=== PATIENT | female | born 1960 | race Caucasian/White ===

== ENCOUNTER 2017-02-27 18:27 | Emergency (ER) | payer OTHER ==
[~2017-02-27] VITALS: Ht 162.6 cm; Wt 81.6 kg
[2017-02-27 19:49] LABS: microscopic required? YES; urine erythrocyte NEGATIVE (NEGATIVE)
[2017-02-27 20:06] LABS: BASOPHIL % 0.3 % (0-2); PLATELET COUNT 195 x10^3mcL (130-400)
[2017-02-27 20:07] LABS: RED CELL DISTRIBUTION WIDTH 14.6 % (11.5-14.5)
[2017-02-27 20:16] LABS: CALCIUM 8.6 mg/dL (8.5-10.1); CARBON DIOXIDE 21.5 mmol/L (21-32); CHLORIDE SERUM 105 mmol/L (98-107); CREATININE SERUM 0.8 mg/dL (0.6-1.0); GFR1 > 60 mL/min; GLUCOSE SERUM 92 mg/dL (74-106); POTASSIUM SERUM 3.6 mmol/L (3.5-5.1); SODIUM SERUM 140 mmol/L (136-145)
[2017-02-27 20:20] LABS: ALKALINE PHOSPHATASE 123 U/L (46-116); ALT/SGPT 37 U/L (14-59); AMYLASE 48 U/L (25-115); AST/SGOT 31 U/L (15-37); LIPASE 134 IU/L (73-393); TOTAL PROTEIN, SERUM 6.9 g/dL (6.4-8.2)
[2017-02-27 20:25] LABS: ALBUMIN 3.3 g/dL (3.4-5.0)
[2017-02-27 21:20] VITALS: BP 134/92
== END 2017-02-27 21:20 | disposition home or self-care (01) ==
LOC: ED 18:27
PROVIDERS: Emergency Medicine
DX: R53.1 Weakness (principal); N39.0 Urinary tract infection, site not specified; E78.00 Pure hypercholesterolemia, unspecified
CPT/HCPCS: 36415

== ENCOUNTER 2017-11-01 11:06 | Emergency (ER) | payer OTHER ==
[~2017-11-01] VITALS: Ht 154.9 cm; Wt 71.7 kg
[2017-11-01 11:17] VITALS: Ht 154.9 cm; Wt 71.7 kg
[2017-11-01 13:51] VITALS: BP 142/46
== END 2017-11-01 13:51 | disposition home or self-care (01) ==
LOC: ED 11:06
DX: B34.9 Viral infection, unspecified (principal); M54.5 Low back pain

== ENCOUNTER 2018-02-10 22:33 | Emergency (ER) | payer OTHER ==
[~2018-02-10] VITALS: Ht 154.9 cm; Wt 71.2 kg
[2018-02-10 22:35] VITALS: BP 143/80; Ht 154.9 cm; Wt 71.2 kg
== END 2018-02-11 00:57 | disposition home or self-care (01) ==
LOC: ED 22:33
DX: Z48.02 Encounter for removal of sutures (principal)
CPT/HCPCS: Q0163

== ENCOUNTER 2018-02-12 19:56 | Emergency (ER) | payer OTHER ==
[~2018-02-12] VITALS: Ht 152.4 cm; Wt 71.2 kg
[2018-02-12 19:59] VITALS: Ht 152.4 cm; Wt 71.2 kg
[2018-02-12 21:45] VITALS: BP 129/69
== END 2018-02-12 21:45 | disposition home or self-care (01) ==
LOC: ED 19:56
DX: Z48.02 Encounter for removal of sutures (principal); E78.00 Pure hypercholesterolemia, unspecified; F41.9 Anxiety disorder, unspecified

== ENCOUNTER 2018-03-06 17:29 | Emergency (ER) | payer OTHER ==
[~2018-03-06] VITALS: Ht 154.9 cm; Wt 71.7 kg
[2018-03-06 17:30] VITALS: BP 134/87
== END 2018-03-06 18:43 | disposition home or self-care (01) ==
LOC: ED 17:29
DX: Z48.00 Encounter for change or removal of nonsurgical wound dressing (principal); Z90.710 Acquired absence of both cervix and uterus; F41.9 Anxiety disorder, unspecified; E78.00 Pure hypercholesterolemia, unspecified

== ENCOUNTER 2018-07-23 14:45 | Emergency (ER) | payer OTHER ==
[~2018-07-23] VITALS: Ht 154.9 cm; Wt 72.1 kg
[2018-07-23 14:55] VITALS: Ht 154.9 cm; Wt 72.1 kg
[2018-07-23 15:20] LABS: UA SPECIFIC GRAVITY <=1.005 (1.005-1.035); microscopic required? YES; urine erythrocyte NEGATIVE (NEGATIVE)
[2018-07-23 16:20] VITALS: BP 105/66
== END 2018-07-23 16:20 | disposition home or self-care (01) ==
LOC: ED 14:45
PROVIDERS: Emergency Medicine
DX: S39.012A Strain of muscle, fascia and tendon of lower back, initial encounter (principal); M54.16 Radiculopathy, lumbar region; M47.9 Spondylosis, unspecified; F41.9 Anxiety disorder, unspecified; H40.9 Unspecified glaucoma; E78.00 Pure hypercholesterolemia, unspecified; Z90.710 Acquired absence of both cervix and uterus; Z98.890 Other specified postprocedural states; X58.XXXA Exposure to other specified factors, initial encounter; Y93.89 Activity, other specified; Y92.89 Other specified places as the place of occurrence of the external cause; Y99.8 Other external cause status
CPT/HCPCS: J1100; J1885

== ENCOUNTER 2019-11-28 15:59 | Emergency (ER) | payer OTHER ==
[~2019-11-28] VITALS: Ht 162.6 cm; Wt 67.6 kg
[2019-11-28 16:08] VITALS: Ht 162.6 cm; Wt 67.6 kg
[2019-11-28 18:07] VITALS: BP 120/79
== END 2019-11-28 18:07 | disposition home or self-care (01) ==
LOC: ED 15:59
DX: J06.9 Acute upper respiratory infection, unspecified (principal); E78.00 Pure hypercholesterolemia, unspecified
CPT/HCPCS: 87804; Q0092

== ENCOUNTER 2020-08-07 11:22 | Emergency (ER) | payer OTHER, SELFPAY ==
[~2020-08-07] VITALS: Ht 154.9 cm; Wt 70.3 kg
[2020-08-07 11:24] VITALS: BP 145/73; Ht 154.9 cm; Wt 70.3 kg
== END 2020-08-07 12:30 | disposition home or self-care (01) ==
LOC: ED 11:22
DX: J18.9 Pneumonia, unspecified organism (principal); E78.00 Pure hypercholesterolemia, unspecified; Z20.828 Contact with and (suspected) exposure to other viral communicable diseases; Z90.710 Acquired absence of both cervix and uterus; Z98.890 Other specified postprocedural states
CPT/HCPCS: U0003